=== PATIENT | female | born 1975 | race African-American/Black ===

== ENCOUNTER 2020-03-23 02:27 | Emergency (ER) | payer SELFPAY ==
[~2020-03-23] VITALS: Ht 162.6 cm; Wt 86.0 kg
[2020-03-23 02:36] VITALS: BP 139/92
[2020-03-23] MEDS ORDERED: LIDOCAINE HCL 1% 20ML VIAL (Pyxis) INJ INFIL ONE (03:30)
[2020-03-23] MEDS ORDERED: IBUPROFEN 600MG TABLET PO ONE (03:30)
[2020-03-23] MEDS ORDERED: TETANUS, DIPHTHERIA, PERTUSSIS VAC/PF 0.5ML (>7YR OLD) IM ONE (04:15)
== END 2020-03-23 04:32 | disposition home or self-care (01) ==
LOC: ER 02:27
DX: S66.126A Laceration of flexor muscle, fascia and tendon of right little finger at wrist and hand level, initial encounter (principal); S61.214A Laceration without foreign body of right ring finger without damage to nail, initial encounter; F43.10 Post-traumatic stress disorder, unspecified; F41.9 Anxiety disorder, unspecified; G43.909 Migraine, unspecified, not intractable, without status migrainosus; Z91.040 Latex allergy status; Z90.710 Acquired absence of both cervix and uterus; Z90.89 Acquired absence of other organs; W26.8XXA Contact with other sharp object(s), not elsewhere classified, initial encounter; Y93.G1 Activity, food preparation and clean up; Y92.010 Kitchen of single-family (private) house as the place of occurrence of the external cause
CPT/HCPCS: 12001; 90471; 90715; 99283; J3490